=== PATIENT | female | born 1990 | race African-American/Black ===

== ENCOUNTER 2024-08-25 16:57 | Emergency (ER) | payer BC ==
[~2024-08-25] VITALS: Ht 170.2 cm; Wt 84.0 kg
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
--- NOTE | 2024-08-25 17:52 | DVH ---
XY L ANKLE 2 VIEW XRAY, INDICATION: fall TECHNICAL DATA:Frontal and lateral views were obtained of the left ankle. COMPARISON: None FINDINGS: No fracture is identified. Joint spaces are maintained. Alignment is anatomic. Soft tissues are wit hin normal limit. IMPRESSION: No acute fracture or dislocation of the left ankle.
--- NOTE | 2024-08-25 18:00 | DVH ---
EXAM: CT HEAD WITHOUT CONTRAST INDICATION: trauma TECHNIQUE: CT of the head without intravenous contrast. Radiation Dose Information: CT Dose: CTDI volume is 54.99 mGy. Dose-length product is 881.5 mGy*cm The dose indicators for CT are the volume Computed Tomography (CT) Dose Index (CTDIvol) and the Dose Length Product (DLP), and are measured in units of mGy and mGy-cm, respectively. These indicators are not patient dose, but values generated from the CT scanner acquisition factors. The report includes radiation exposure data for exposures received during this examination. COMPARISON: None FINDINGS: There is no evidence of acute intracranial hemorrhage, extra-axial collection, mass effect, midline s hift, herniation or hydrocephalus. The ventricles, sulci and cisterns are age appropriate. The malik-white differentiation is intact. Patchy periventricular and subcortical white matter hypoattenuation is nonspecific but may be related to small vessel ischemic disease. The visualized paranasal sinuses and mastoid air cells are clear. The surrounding soft tissues and osseous structures are unremarkable. IMPRESSION: 1. No acute intracranial abnormality.
[2024-08-25] MEDS: HYDROcodone-ACET 5/325MG TAB PO ONE (19:39)
[2024-08-25 19:55] VITALS: BP 129/88; PULSE 98; RESP 16; TEMP 98.8; O2SAT 98
== END 2024-08-25 20:09 | disposition home or self-care (01) ==
LOC: ER 16:57
DX: S93.402A Sprain of unspecified ligament of left ankle, initial encounter (principal); S09.90XA Unspecified injury of head, initial encounter; E78.5 Hyperlipidemia, unspecified; W20.8XXA Other cause of strike by thrown, projected or falling object, initial encounter; Y93.89 Activity, other specified; Y92.89 Other specified places as the place of occurrence of the external cause; Y99.8 Other external cause status
CPT/HCPCS: 70450; 73600